=== PATIENT | female | born 1990 | race Caucasian/White ===

== ENCOUNTER 2021-08-12 12:44 | Emergency (ER) | payer OTHER ==
[~2021-08-12] VITALS: Ht 167.6 cm; Wt 68.0 kg
--- NOTE | ~2021-08-12 | EMS ---
[facility] [address] [place] [address] EMS Patient Care Report Name: ALDO DE ANDA Room #: REG SAHIL Street#: [id number] Admission: 08/12/21 Attend Phys: Discharge: Date of : [birth year] Report #: [id number] THIS REPORT FOR: //name// Report Transmitted: 08/12/2021 12:55 EMS Care Summary [place], [place]/[facility] Incident [id number] @ 08/12/2021 12:14 Incident Location [id number] [place], [place] [id number] Patient ALDO JIMENEZ Female, 31 Years 1990 Patient Address [address] [place] [id number] Patient History None Reported, Patient Allergies No known allergies, Patient Medications None Reported, Chief Complaint ABD PAIN WITH VOMITING Disposition Transported No Lights/[place] Dispatch Reason Chest Pain (Non-Traumatic) Transported To [facility] Narrative UPON ARRIVAL PT SITTING ON COUCH HOLDING HER STOMACH CONSCIOUS AND ALERT. PT STATES HER HANDS AND FEET ARE GOING NUMB AND SHE IS HYPERVENTILATING. WE ARE ABLE TO SLOW PT'S BREATHING DOWN. PT STATES HER CHEST AND STOMACH BEGAN HURTING THIS MORNING AND SHE'S BEEN THROWING UP EVER SINCE. CHEST PAIN IS WORSE THE [facility] [address] [place] [address] EMS Patient Care Report Name: ALDO DE ANDA Room #: REG [facility]#: [id number] Admission: 08/12/21 Attend Phys: Discharge: Date of : 89 Report #: [id number] DEEPER SHE BREATHES, DESCRIBED SHARP AND LOCATED UNDER L BREAST. PT ASSISTED TO COT AND TRANSPORTED. Initial Vitals @12:24P: 65,CO: 0,SpO2: 99,OR Suspected: false @12:29P: 87,BP: 138/94,SpO2: 99, @12:38P: 71,R: 24,BP: 129/84,GCS: 15,CO: 1,SpO2: 100,Revised Trauma: 12, @12:22P: 80,R: 30,BP: 142/83,Pain: 10/10,GCS: 15,Glucose: 124,CO: 0,SpO2: 100,Revised Trauma: 11, Assessments @12:23MENTAL:Event Oriented,Person Oriented,Time Oriented,Place Oriented,SKIN:HEENT:Head/Face: No Abnormalities,LUNG SOUNDS:General: Nausea,General: Vomiting,ABDOMEN:General: Nausea,General: Vomiting,PELVIS//GI:EXTREMITIES:Left Arm: No Abnormalities,Right Arm: No Abnormalities,Left Leg: No Abnormalities,Right Leg: No Abnormalities,PULSE:Radial: 2+ Normal,NEURO:No Abnormalities, Impression Chest pain on breathing Procedures @12:24 12-Lead ECG Response: UnchangedSucceeded @12:23 3-Lead ECG Response: UnchangedSucceeded @12:28 IV Therapy - Saline Lock 20cc (20 ga) Site: Antecubital-Left Response: UnchangedSucceeded @12:33 Zofran - 4 Milligrams (mg) - Intravenous (IV) Response: Unchanged @12:23 ALS Assessment Response: UnchangedSucceeded Timeline 12:13,Call Received 12:13,Dispatch Notified 12:14,Dispatched 12:14,En Route 12:18,On Scene 12:19,At Patient 12:22,BP: 142/83 M,PULSE: 80,RR: 30 R,SPO2: 100 Ox,ETCO2: ,B,PAIN: 10,GCS: 15, 12:23,ALS Assessment,Response: UnchangedSucceeded, 12:23,3-Lead ECG,Response: UnchangedSucceeded, 12:24,12-Lead ECG,Response: UnchangedSucceeded, 12:24,BP: / M,PULSE: 65,RR: R,SPO2: 99 Ox,ETCO2: ,BG: ,PAIN: ,GCS: , 12:28,IV Therapy - Saline Lock 20cc 20 ga Site: Antecubital-Left,Response: UnchangedSucceeded, 12:29,BP: 138/94 M,PULSE: 87,RR: R,SPO2: 99 Ox,ETCO2: ,BG: ,PAIN: ,GCS: , [address] [address] EMS Patient Care Report Name: ALDO DE ANDA Room #: REG SAHIL Street#: [id number] Admission: 08/12/21 Attend Phys: Discharge: Date of : [birth year] Report #: [id number] 12:29,Depart Scene 12:33,Zofran - 4 Milligrams (mg) - Intravenous (IV),Response: Unchanged 12:38,BP: 129/84 M,PULSE: 71,RR: 24 R,SPO2: 100 Ox,ETCO2: ,BG: ,PAIN: ,GCS: 15, 12:53,At Destination 12:58,Call Closed Disclaimer v1.1 Copyright 2021 [employer] This EMS Care Summary contains data elements from the applicable legal record (which may be displayed differently). It is designed to provide pertinent information for the following purposes: continuity of care, clinical quality, and state data reporting. The complete legal record is available to ED staff and administrators of the receiving hospital in [employer] Patient Tracker. All data is provided "as is."
[2021-08-12 13:49] LABS: ABSOLUTE NEUTROPHILS 7.9 thou/uL (1.4-8.2); BASOPHILS 0.7 % (0.0-2.0); EOSINOPHILS 0.1 % (0.0-3.0); HEMATOCRIT 36.2 % (37.0-47.0); HEMOGLOBIN 11.7 gm/dL (12.0-15.0); LYMPHOCYTES 9.4 % (24.0-44.0); MCH 30.1 pg (26.0-34.0); MCHC 32.3 g/dL (28.0-37.0); MCV 93.2 fL (80.0-100.0); MONOCYTES 1.8 % (1.0-8.0); PLATELET COUNT 382 thou/uL (150-400); RBC 3.88 mil/uL (4.20-5.00)
[2021-08-12 13:57] LABS: CALCIUM 9.5 mg/dL (8.5-10.1); CREATININE 0.9 mg/dL (0.6-1.0); POTASSIUM 3.5 mmol/L (3.5-5.1)
[2021-08-12 14:07] LABS: ALBUMIN 4.2 g/dL (3.4-5.0); TOTAL BILIRUBIN 0.8 mg/dL (0.2-1.0); TOTAL PROTEIN 7.5 g/dL (6.4-8.2)
[2021-08-12] MEDS ORDERED: ZOFRAN ODT4 MG PO (18:45)
[2021-08-12 19:34] VITALS: BP 129/72
--- NOTE | 2021-08-13 10:55 | EKG ---
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
== END 2021-08-12 19:36 | disposition home or self-care (01) ==
LOC: ER 12:44
PROVIDERS: Nurse Practitioner
DX: K20.0 Eosinophilic esophagitis (principal); Z20.822 Contact with and (suspected) exposure to COVID-19